=== PATIENT | male | born 1990 | race Caucasian/White ===

== ENCOUNTER 2025-04-30 02:28 | Emergency (ER) | payer MEDICAID ==
[~2025-04-30] VITALS: Ht 175.3 cm; Wt 92.2 kg
[2025-04-30 02:29] VITALS: BP 144/91; PULSE 95; RESP 18; TEMP 97.6; O2SAT 98
[2025-04-30] MEDS ORDERED: CLIN-214 PO (02:46)
--- NOTE | 2025-04-30 02:46 | Physician Documentation ---
HPI ~ General Chief Complaint: Tooth Problem Stated Complaint: TOOTH PAIN Time Seen by MD: 02:42 History of Present Illness HPI Comment 35 year old male with R lower molar pain and dental decay. Medication Reconciliation Allergies: Coded Allergies: No Known Allergies (Unverified , 04/30/25) Review of Systems All Other Systems at this time: Reviewed and Negative Physical Exam Vital Signs: RN Vital Signs have been reviewed: Yes, Temperature: 97.6, Source: Temporal, Heart Rate: 95, Respiratory Rate: 18, BP: 144/91, Pulse Oximetry: 98, Weight: 92.250 Oxygen Flow Rate: 0 Physical Exam HEENT: PERRL, moist oral mucosa, EOMI poor dentitin Pulmonary: No respiratory distress MSK: no deformity Skin: w/d/i, no rash Neuro: alert, nonfocal Psych: normal affect Progress Results/Orders Results/Orders Vital Signs 04/30/25 02:29 Temp 97.6 Pulse 95 Resp 18 B/P (MAP) 144/91 Pulse Ox 98 O2 Flow Rate 0 Medical Decision Making Additional information obtaine: N/A Findings Dental abscess. Abx, pain meds, return precautions. Differential Dx:Considerations: Include: Alveolar fracture, Alveolar osteitis, Facial Cellulitis, Periapical abscess, Peridontal abscess, Pulpitis, Tooth avulsion, Tooth eruption, Tooth Fracture, Tooth subluxation Departure Disposition: 01 HOME / SELF CARE / HOMELESS Impression: Primary Impression: Dental abscess Condition: Stable Discharge Instructions: Dental Pain Referrals: NO PRIMARY CARE PROVIDER (PCP) Prescriptions Clindamycin HCl (Clindamycin HCl CAPSULE) 150 Mg Capsule 2 CAP PO TID for 10 Days, #60 CAP Prov: JAVIER PICKARD MD 04/30/25 Education Educated: Patient Educated regarding: diagnosis, treatment, prognosis, need for follow up Signature Scribe Signature: . Attestation: . JAVIER PICKARD MD Apr 30, 2025 02:46
[2025-04-30] MEDS: HYDROcodone/acetaminophen 5mg/325mg tablet PO ONE (02:50)
[2025-04-30] MEDS: ketorolac trometh 30MG/ML vial 30 MG/ML VIAL IM ONE (02:51)
== END 2025-04-30 02:57 | disposition home or self-care (01) ==
LOC: ER 02:29
DX: K04.7 Periapical abscess without sinus (principal)
CPT/HCPCS: 96372; 99283; J1885